=== PATIENT | female | born 1960 | race Caucasian/White ===

== ENCOUNTER → 2016-11-16 | Outpatient (CLI) | payer BC ==
[~2016-11-16] MED LIST: ALBUTEROL MININEB NEB; AMLODIPINE BESYL5 MG PO; ASPIRIN325 M1 PO; ASPIRIN81 M2 PO; BIRTH CONTROL PILL PO; CARAFATE1 GM PO; HCTZ PO; KCL PO; LOPRESSOR PO; MACROBID100 MG PO; MICROGESTIN FE1 EACH PO; NEXIUM PO; NORVASC PO; PRO AIR; PROAIR HFA8.5 GM IN; PROAIR HFA8.5 GM INH; PROTONIX PO; TOPROL XL 50 MG50 M1 PO; TRIAMTERENE-HC1 EAC1 PO; ZETIA PO
--- NOTE | ~2016-11-16 | US6 ---
[facility] A Service of [facility] RADIOLOGY TEXT RESULTS PATIENT: FAIZA MARTINI LOCATION: [facility] : 62 UNIT #: [id number] AGE: [address]: Lm Myers MD SEX: F ORDER DR: [id number] [place] [id number] O MR#: [id number] Acc #: [id number] NAME: FAIZA MARTINI : 1960 SEX: F STUDY DATE/TIME: 11/16/2016 8:15 UNIT: SGUS ROOM: STUDY DESCRIPTION: US Abdominal Limited Attending Physician: Lm Myers Jr., M.D. Referring Physician: Lm Myers Jr., M.D. Ordering Physician: Lm Myers Jr., M.D. Primary Care Physician: Lm Myers Jr., M.D. MEDICAL IMAGING REPORT This report is preliminary unless electronic signature is present. EXAM Right upper quadrant ultrasound, 11/16/2016 HISTORY Right upper quadrant abdominal pain for 3 months. Cholecystectomy in 2009. FINDINGS The liver demonstrates an increase in echotexture with attenuation of the ultrasound beam characteristic of fatty infiltration. No cystic or solid mass lesions were seen in the liver. The intra- and extrahepatic bile ducts are not dilated. The gallbladder is surgically absent as per patient history. The common duct measures 3 mm. The pancreas and right kidney are normal. IMPRESSION 1. Fatty infiltration of the liver. 2. Surgical absence of the gallbladder. Dictated by... Isaac Temple M.D. THIS IS AN ELECTRONICALLY VERIFIED REPORT Isaac Temple M.D. at 11/18/2016 7:45 AM ELVIRA/anthony TD: 11/17/2016 00:02 JOB #: [id number] MEDICAL IMAGING REPORT [facility] A Service of [facility] RADIOLOGY TEXT RESULTS PATIENT: FAIZA MARTINI LOCATION: [facility] : 62 UNIT #: [id number] AGE: [address]: Lm Myers MD SEX: F ORDER DR: Page 1 of 1
== END | disposition home or self-care (01) ==
LOC: SGUS 07:51
DX: R10.11 Right upper quadrant pain (principal); K76.0 Fatty (change of) liver, not elsewhere classified; Z90.49 Acquired absence of other specified parts of digestive tract
CPT/HCPCS: 76705